=== PATIENT | male | born 1965 | race Two or more races ===

== ENCOUNTER 2017-10-16 13:43 | Emergency (ER) | payer OTHER ==
[~2017-10-16] VITALS: Ht 170.2 cm; Wt 86.2 kg
[2017-10-16] MEDS ORDERED: oxyCODONE HCL/Acetaminophen 5/325mg ORAL ONE (14:00)
[2017-10-16 14:12] VITALS: BP 158/96
[2017-10-16] MEDS ORDERED: Norco 5mg/325mg tab ORAL ONE (14:15)
--- NOTE | 2017-10-16 14:15 | Emergency Room Report ---
History of Present Illness General Chief Complaint: Upper Extremity Injury Source: Patient Present Illness HPI 52-year-old male presents to emergency department complaining of pain, tenderness, bruising and swelling to the nail and cuticle of the right fourth digit x4 days. Patient states status post large can of tomato sauce falling on top of his finger. Patient states swelling has been progressive. He states he is not up-to-date with his tetanus. He reports discoloration of the nail. Pt is right hand dominant. Denies numbness tingling or loss of sensation or gross motor movements of the extremities, incontinence of bowel or bladder. Denies CP , Palpitations, LOC, AMS, dizziness, Changes in Vision, Sensation, paresthesias , or a sudden severe headache. Allergies: Coded Allergies: No Known Allergies (Unverified , 10/16/17) Patient History Past Medical History: see triage record Past Surgical History: none Pertinent Family History: none Reviewed Nursing Documentation: PMH: Agreed, PSxH: Agreed Nursing Documentation-PMH Past Medical History: No Stated History Review of Systems All Other Systems: negative except mentioned in HPI Physical Exam Vital Signs Date Time Temp Pulse Resp B/P (MAP) Pulse Ox O2 Delivery O2 Flow Rate FiO2 10/16/17 13:48 98.1 93 18 158/96 97 Room Air Sp02 EP Interpretation: reviewed, normal General Appearance: no apparent distress, alert, GCS 15, non-toxic Head: normocephalic, atraumatic Eyes: bilateral eye normal inspection, bilateral eye PERRL ENT: hearing grossly normal, normal voice Neck: full range of motion Respiratory: chest non-tender, lungs clear, normal breath sounds, speaking full sentences Cardiovascular #1: regular rate, rhythm, normal capillary refill Rectal: deferred Genitourinary: normal inspection Musculoskeletal: back normal, gait/station normal, normal range of motion, swelling - right 4th finger, tender - TTP to the Proximal dorsal right 4th finger nail/finger, no nail laceration/crack. cuticle swelling, and echymosis noted under cuticle and proximal nail bed. Neurologic: alert, oriented x3, responsive, motor strength/tone normal, sensory intact, speech normal, grossly normal Psychiatric: judgement/insight normal Skin: no rash, warm/dry, well hydrated, other - no nail laceration/crack. cuticle swelling, and echymosis noted under cuticle and proximal nail bed. Lymphatic: no adenopathy Procedures Nail Trepanation Nail Trepanation : Consent: Verbal Nail Trepanation Location: right 4th digit just distal to the matrix. Method of Drainage: 18 gauge needle - cuticle was also lifted away from nail using 18g needle allowing blood to drain. moderate amount drained with gentle pressure. , nail cauterized Sterile Dressing Applied: Yes Finger Splint: Yes Patient Tolerated: Well Complications: None Progress Pt. reports improvement of his symptoms. Medical Decision Making PA Attestation Dr. Duffy is my supervising Physician whom patient management has been discussed with. Diagnostic Impression: Primary Impression: Subungual hematoma of finger Qualified Codes: S60.10XA - Contusion of unspecified finger with damage to nail, initial encounter Additional Impression: Paronychia of right ring finger ER Course 52-year-old male presents to emergency department complaining of pain, tenderness, bruising and swelling to the nail and cuticle of the right fourth digit x4 days. Patient states status post large can of tomato sauce falling on top of his finger. Patient states swelling has been progressive. He states he is not up-to-date with his tetanus. He reports discoloration of the nail. Pt is right hand dominant. Denies numbness tingling or loss of sensation or gross motor movements of the extremities, incontinence of bowel or bladder. Denies CP , Palpitations, LOC, AMS, dizziness, Changes in Vision, Sensation, paresthesias , or a sudden severe headache. Ddx considered but are not limited to subungual hematoma, nail-bed laceration, fracture, nail avulsion, paronychia/eponychia just to name a few. Vital signs: are WNL, pt. is afebrile H&PE are most consistent with subungual hematoma and possible finger fracture. ORDERS: -X-rays: Negative for acute fracture. ED INTERVENTIONS: -Pain medication - nail trepanation -Finger Splint applied by satellite installation technician. Pt. remains neurovascularly intact. - Tdap is administered. DISCHARGE: At this time pt. is stable for d/c to home. Will provide printed patient care instructions, and any necessary prescriptions. Care plan and follow up instructions have been discussed with the patient prior to discharge. Other X-Ray Diagnostic Results Other X-Ray Diagnostic Results : X-Ray ordered: Right hand # of Views/Limited Vs Complete: 3 View Indication: Pain EP Interpretation: Yes [id number] Xray: Interpretation reviewed, by supervising MD, and agrees with findings. Interpretation: no dislocation, no soft tissue swelling, no fractures Impression: No acute disease Electronically Signed by: Rhonda Santoyo PA-C Last Vital Signs Date Time Temp Pulse Resp B/P (MAP) Pulse Ox O2 Delivery O2 Flow Rate FiO2 10/16/17 13:48 98.1 93 18 158/96 97 Room Air Disposition: HOME, SELF-CARE Condition: Stable Scripts Ibuprofen* (MOTRIN*) 600 Mg Tablet 600 MG ORAL THREE TIMES A DAY, #30 TAB 0 Refills Prov: Rhonda Santoyo 10/16/17 Clindamycin Hcl (CLINDAMYCIN HCL) 300 Mg Capsule 300 MG ORAL FOUR TIMES A DAY for 7 Days, #28 CAP Prov: Rhonda Santoyo 10/16/17 Patient Instructions: Paronychia, [id number], Subungual Hematoma Additional Instructions: Take medications as directed. Follow up with a Primary Care Provider in 3-5 days, even if your symptoms have resolved. --Please review list of primary care clinics, if you do not already have a primary care provider Return sooner to ED if new symptoms occur, or current symptoms become worse. - Please note that this Emergency Department Report was dictated using [employer] technology software, occasionally this can lead to erroneous entry secondary to interpretation by the dictation equipment. Rhonda Santoyo Oct 16, 2017 14:15
[2017-10-16] MEDS ORDERED: CLINDAMYCIN HC300 MG ORAL (15:20)
[2017-10-16] MEDS ORDERED: IBUPROFEN600 MG ORAL (15:20)
[2017-10-16] MEDS ORDERED: Tetanus/Diptheria/Pertussis Vaccine 0.5ml Syr IM ONE (15:30)
[2017-10-16 15:35] VITALS: BP 148/92
--- NOTE | 2017-10-17 09:33 | Diagnostic Imaging Report ---
Indication: Status post injury Technique: XRAY Hand Complete R Comparison: None Findings: There is no acute fracture or dislocation. Anatomic alignment and joint spaces within normal limits. There is mild soft tissue swelling overlying the fourth distal phalanx. No radiopaque foreign body seen. Impression: No acute fracture or dislocation. Mild soft tissue swelling overlying the fourth distal phalanx. Correlate with physical exam. This corresponds with the interpretation of the treating ER clinician as documented in the electronic medical record.
== END 2017-10-16 15:38 | disposition home or self-care (01) ==
LOC: EMR 14:15
DX: S60.141A Contusion of right ring finger with damage to nail, initial encounter (principal); W20.8XXA Other cause of strike by thrown, projected or falling object, initial encounter; Y92.9 Unspecified place or not applicable; L03.011 Cellulitis of right finger
CPT/HCPCS: 10060; 29130; 99284